=== PATIENT | female | born 1960 | race Caucasian/White ===

== ENCOUNTER 2017-04-09 16:55 | Emergency (ER) | payer MEDICAID ==
[~2017-04-09] VITALS: Ht 165.1 cm; Wt 139.3 kg
[2017-04-09 17:09] VITALS: BP_SYST 105
[2017-04-09 18:09] LABS: BASOPHILS % (AUTO) 0.5 % (0.0-2.0); EOSINOPHILS # (AUTO) 0.1 K/uL (0.0-0.4); EOSINOPHILS % (AUTO) 0.9 % (0.0-4.0); HEMATOCRIT 28.9 % (36-48); HEMOGLOBIN 9.5 g/dL (12.0-16.0); LYMPHOCYTES # (AUTO) 1.8 K/uL (1.0-5.5); LYMPHOCYTES % (AUTO) 21.4 % (20.5-51.5); MEAN CORPUSCULAR HEMOGLOBIN 29 pg (27-31); MEAN CORPUSCULAR HGB CONC 33 % (32-36); MEAN CORPUSCULAR VOLUME 88 fL (79.0-98.0); MONOCYTES # (AUTO) 0.4 K/uL (0.0-1.0); MONOCYTES % (AUTO) 4.3 % (1.7-9.3); NEUTROPHILS # (AUTO) 6.1 K/uL (1.8-7.7); NEUTROPHILS % (AUTO) 72.9 % (40.0-70.0); PLATELET COUNT (AUTO) 266 K/uL (130-430); RED BLOOD CELL COUNT(AUTO) 3.27 MIL/uL (4.2-6.2); RED CELL DISTRIBUTION WIDTH 14.6 % (9.0-15.0); WHITE BLOOD COUNT (AUTO) 8.4 K/uL (4.8-10.8)
[2017-04-09 18:24] LABS: CALCIUM 8.8 mg/dL (8.4-11.0); CREATININE 2.81 mg/dL (0.55-1.30); POTASSIUM 4.2 mmol/L (3.5-5.1)
[2017-04-09 18:27] LABS: PROTHROMBIN TIME 10.6 SECS (9.5-12.5)
[2017-04-09 18:29] LABS: ALBUMIN 2.8 g/dL (3.4-4.8); TOTAL BILIRUBIN 0.2 mg/dL (0.0-1.0)
[2017-04-09 19:01] VITALS: BP_SYST 110
== END 2017-04-09 19:01 | disposition home or self-care (01) ==
LOC: SED 16:55
DX: R60.0 Localized edema (principal); I12.9 Hypertensive chronic kidney disease with stage 1 through stage 4 chronic kidney disease, or unspecified chronic kidney disease; E11.22 Type 2 diabetes mellitus with diabetic chronic kidney disease; N18.9 Chronic kidney disease, unspecified; Z99.81 Dependence on supplemental oxygen
CPT/HCPCS: 36415; 71010; 80053; 83880; 85025; 85610-TC; 85730-TC; 93970; 99285

== ENCOUNTER 2018-05-12 08:05 | Inpatient (IN) | payer MEDICAID, OTHER ==
[~2018-05-12] VITALS: Ht 160 cm; Wt 141.5 kg
[2018-05-12 08:05] VITALS: BP_SYST 156
--- NOTE | 2018-05-12 08:05 | NUR ---
[facility]
--- NOTE | 2018-05-12 08:15 | NUR ---
Pt bib EMS from home s/p mech fall w/o syncope per report.Pt c/o R shoukder pain w/ decreased ROM.Affected area to tender to palpation. Pt guarding limb. Pt h/o COPD,HTN,DM,ESRD.
--- NOTE | 2018-05-12 08:19 | NUR ---
ER at bedside examining patient.
[2018-05-12] MEDS ORDERED: fentaNYL CITRATE/PF 100 MCG/2 ML AMP IVP ONE (09:00)
--- NOTE | 2018-05-12 09:15 | NUR ---
Pt medicated tolerated well.
--- NOTE | 2018-05-12 09:20 | NUR ---
Shoulder immobilizer placed.
[2018-05-12 09:59] LABS: BASOPHILS # (AUTO) 0.1 K/uL (0.0-0.2); BASOPHILS % (AUTO) 0.7 % (0.0-2.0); EOSINOPHILS % (AUTO) 0.6 % (0.0-4.0); HEMATOCRIT 32.1 % (36-48); HEMOGLOBIN 10.7 g/dL (12.0-16.0); LYMPHOCYTES % (AUTO) 12.8 % (20.5-51.5); MEAN CORPUSCULAR HEMOGLOBIN 35 pg (27-31); MEAN CORPUSCULAR HGB CONC 33 % (32-36); MEAN CORPUSCULAR VOLUME 104 fL (79.0-98.0); MONOCYTES # (AUTO) 0.6 K/uL (0.0-1.0); NEUTROPHILS # (AUTO) 6.3 K/uL (1.8-7.7); NEUTROPHILS % (AUTO) 77.9 % (40.0-70.0); PLATELET COUNT (AUTO) 242 K/uL (130-430); RED BLOOD CELL COUNT(AUTO) 3.09 MIL/uL (4.2-6.2); RED CELL DISTRIBUTION WIDTH 18.6 % (9.0-15.0)
[2018-05-12 10:04] LABS: CALCIUM 8.5 mg/dL (8.4-11.0); CREATININE 3.11 mg/dL (0.55-1.30); POTASSIUM 4.8 mmol/L (3.5-5.1)
[2018-05-12] MEDS ORDERED: ALLO100T PO (10:41)
[2018-05-12] MEDS ORDERED: FURO-149 PO (10:41)
[2018-05-12] MEDS ORDERED: GABA-531 PO (10:41)
[2018-05-12] MEDS ORDERED: HYDR-3610 PO (10:41)
[2018-05-12] MEDS ORDERED: SEVE800T8 PO (10:41)
[2018-05-12] MEDS ORDERED: CLOP300T2 PO (10:41)
[2018-05-12] MEDS ORDERED: LISI10TA5 PO (10:41)
[2018-05-12] MEDS ORDERED: SIMV80TA2 PO (10:41)
[2018-05-12] MEDS ORDERED: FOLI-43 PO (10:41)
[2018-05-12] MEDS ORDERED: FLO44 INH (10:41)
[2018-05-12] MEDS ORDERED: GLIP5TAB13 PO (10:41)
[2018-05-12] MEDS ORDERED: ASPI-1153 PO (10:41)
[2018-05-12] MEDS ORDERED: ALBMDI INH (10:41)
--- NOTE | 2018-05-12 10:41 | NUR ---
Medication reconciliation completed based upon med list provided by [facility].
--- NOTE | 2018-05-12 10:47 | NUR ---
Patient will be admitted to care of Dr. Murillo. Admitted to Telemetry unit. Will go to room 133A. Belongings list completed. Summary report printed. Report will be given at bedside.
[2018-05-12] MEDS ORDERED: MAGNESIUM SULFATE 50 ML IV PRN (11:00)
[2018-05-12] MEDS ORDERED: ACETAMINOPHEN 325 MG TABLET PO PRN (11:00)
[2018-05-12] MEDS ORDERED: MUPIROCIN 2% TOPICAL OINTMENT 22 GM NS PRN (11:00)
[2018-05-12] MEDS ORDERED: POTASSIUM CHLORIDE 20 MEQ TAB.PRT.SR PO PRN (11:00)
[2018-05-12] MEDS ORDERED: ONDANSETRON HCL 4 MG/2 ML VIAL IVP PRN (11:00)
[2018-05-12] MEDS ORDERED: DEXTROSE 50% JECT 50 ML DISP.SYRIN IVP PRN (11:00)
[2018-05-12] MEDS ORDERED: DOCUSATE SODIUM 100 MG CAPSULE PO PRN (11:00)
[2018-05-12] MEDS ORDERED: NACL 0.9% 1,000 ML IV SCH (11:00)
[2018-05-12] MEDS ORDERED: ZOLPIDEM TARTRATE 5 MG TABLET PO PRN (11:00)
[2018-05-12] MEDS ORDERED: ALBUTEROL SULFATE 0.083% 2.5 MG/3 ML VIAL.NEB INH PRN (11:00)
[2018-05-12] MEDS ORDERED: MORPHINE 2 MG/ML INJ. SYRINGE IVP PRN (11:00)
[2018-05-12] MEDS ORDERED: LORazepam 2 MG/ML VIAL IVP PRN (11:00)
--- NOTE | 2018-05-12 11:16 | NUR ---
ADMISSION NOTE Received patient from ER via matilde, received report from JEYSON ALEJANDRO. Patient admitted with diagnosis of RIGHT SHOULDER FRACTURE . Patient oriented to hospital routine, call light, toileting and safety-patient verbalized understanding.
--- NOTE | 2018-05-12 11:32 | NUR ---
Ortho consult called: for Dr. Glaser, regarding right shoulder fracture, ordered by Dr. Murillo, spoke with Lois.
--- NOTE | 2018-05-12 11:37 | NUR ---
Nephro consult called: for Dr. Díaz, regarding CKD, ordered by Dr. Murillo, spoke with
[2018-05-12 11:38] VITALS: BP_SYST 164
[2018-05-12] MEDS: MORPHINE 2 MG/ML INJ. SYRINGE IVP PRN ×2 (11:55→18:22)
[2018-05-12] MEDS: INSULIN ASPART 100 UNITS/ML, 10 ML VIAL (NovoLOG) SUBCUT PRN ×3 (12:01→21:28)
[2018-05-12] MEDS: SEVELAMER HCL 800 MG TABLET PO SCH ×2 (12:22→18:16)
--- NOTE | 2018-05-12 12:37 | NUR ---
[facility] rounds: Seen by Dr. Swann and talk to the patient. at bedside.
--- NOTE | 2018-05-12 12:38 | NUR ---
Initial Physical Assessment: Patient awake, alert and oriented. Stable. Sling on R arm. Able to move L upper and lower extremities. Bilateral dry skin with skin discoloration on lower extremities. Call light within reach. Safety measures in placed. Addendum: 05/12/18 at 1248 by Zara Duran RN Unable to see the buttocks due to patient in pain and difficulty moving.
[2018-05-12 12:45] VITALS: BP_SYST 128
[2018-05-12] MEDS ORDERED: HEPARIN SODIUM,PORCINE 5000 UNITS/ML VIAL MC ONE (14:00)
--- NOTE | 2018-05-12 15:01 | NUR ---
dialysis: Patient on going dialysis at bedside.
--- NOTE | 2018-05-12 15:51 | NUR ---
Dialysis done: Dialysis done with an output 2080 ml.
[2018-05-12 16:45] VITALS: BP_SYST 138
[2018-05-12 16:53] VITALS: BP_SYST 164
--- NOTE | 2018-05-12 17:32 | NUR ---
Shoulder immobilizer: applied immobilizer on the R shoulder. patient tolerated well.
[2018-05-12] MEDS: FLOVENT 44 MCG INH SCH (19:00)
--- NOTE | 2018-05-12 19:30 | NUR ---
Opening notes Pt AAOx4. VSS. No acute resp distress noted. Right shoulder immobilizer in place with cool packs. Pt able to move hands and fingers. R. Sumeet cath dressing C/D/I. R. wrist 20G clear, patent. Rasheed legs with dryness and discoloration noted. Call light placed within easy reach. Pt made comfortable with pillows for support. Pt voided using bedpan. Will continue to monitor.
--- NOTE | 2018-05-12 19:33 | NUR ---
Closing notes: Patient on bed resting. Stable. Needs attended. R arm with shoulder immobilizer. Safety measures in placed. Call light within reach. at bedside. Report given to Fatmata Rodrigues.
[2018-05-12 20:10] VITALS: BP_SYST 158
[2018-05-12] MEDS: GABAPENTIN 300 MG CAPSULE PO SCH (21:05)
[2018-05-12] MEDS: SIMVASTATIN 40 MG TABLET PO SCH (21:05)
--- NOTE | 2018-05-12 21:28 | NUR ---
Rounds/Blood sugar check Pt asleep, easily arousable. at bedside. BS checked 228, 4 units of Novolog insulin given per ss protocol. Pt states she doesn't take Levimer at home and refused med. Pt educated of risks/benefits. Call light within reach. To monitor.
--- NOTE | 2018-05-13 00:15 | NUR ---
Rounds Pt asleep, easily arousable. Pt denies pain at this time. Neuro check R. shoulder intact, pt able to wiggle/move fingers, warm to touch. Call light within reach. To monitor.
[2018-05-13 00:26] VITALS: BP_SYST 149
[2018-05-13] MEDS: MORPHINE 2 MG/ML INJ. SYRINGE IVP PRN ×4 (02:13→15:41)
--- NOTE | 2018-05-13 02:13 | NUR ---
Pain mgmt Pt awake, voided in the bedpan. Pt c/o 8/10 aching pain on R. shoulder. Medicated with Morphine 2mg IVP as needed. Ice packs on. Call light within reach. Rasheed SCDs on. Will continue to monitor.
--- NOTE | 2018-05-13 04:30 | NUR ---
Rounds Pt awake. Assisted with bedpan per BEHAVIORAL HEALTH CARE MANAGER. Pt voided. Pericare provided. Call light within reach. To monitor.
[2018-05-13 06:36] LABS: BASOPHILS % (AUTO) 0.2 % (0.0-2.0); EOSINOPHILS # (AUTO) 0.1 K/uL (0.0-0.4); EOSINOPHILS % (AUTO) 0.7 % (0.0-4.0); HEMATOCRIT 30.4 % (36-48); HEMOGLOBIN 10.2 g/dL (12.0-16.0); LYMPHOCYTES # (AUTO) 1.8 K/uL (1.0-5.5); LYMPHOCYTES % (AUTO) 21.4 % (20.5-51.5); MEAN CORPUSCULAR HEMOGLOBIN 35 pg (27-31); MEAN CORPUSCULAR HGB CONC 33 % (32-36); MEAN CORPUSCULAR VOLUME 104 fL (79.0-98.0); MONOCYTES # (AUTO) 0.8 K/uL (0.0-1.0); MONOCYTES % (AUTO) 9.6 % (1.7-9.3); NEUTROPHILS # (AUTO) 5.7 K/uL (1.8-7.7); NEUTROPHILS % (AUTO) 68.1 % (40.0-70.0); PLATELET COUNT (AUTO) 244 K/uL (130-430); RED BLOOD CELL COUNT(AUTO) 2.93 MIL/uL (4.2-6.2); RED CELL DISTRIBUTION WIDTH 18.7 % (9.0-15.0); WHITE BLOOD COUNT (AUTO) 8.4 K/uL (4.8-10.8)
[2018-05-13 06:45] LABS: CALCIUM 8.8 mg/dL (8.4-11.0); CREATININE 2.58 mg/dL (0.55-1.30); POTASSIUM 4.8 mmol/L (3.5-5.1)
--- NOTE | 2018-05-13 06:50 | NUR ---
Closing notes/Pain mgmt Pt asleep easily arousable. No acute distress noted. Pt c/o 03/13 R. shoulder pain, medicated with Morphine 2mg IVP as needed. R. shoulder sling on. Neuro check intact, pt able to move fingers. MRSA nares collected and sent to lab. Pt's home med Symbicort inhaler sent to lab. Rasheed SCDs in place. All needs met. Call light within reach. To endorse to am nurse.
[2018-05-13] MEDS: INSULIN ASPART 100 UNITS/ML, 10 ML VIAL (NovoLOG) SUBCUT PRN ×4 (06:55→20:39)
[2018-05-13] MEDS: FLOVENT 44 MCG INH SCH (07:00)
--- NOTE | 2018-05-13 07:45 | NUR ---
Opening note patient resting in bed, alert and awake x4, received pain medication prior to shift change, assessment complete, hygiene care performed, right shoulder immobilizer in place, neurovascular assessment complete, educated the patient on plan of care and call light system and to call for any assistance, patient verbalized understanding, bed in lowest position, bed close to nursing station, two side rails up, bed alarm on, call light within reach, fall and aspiration precautions in place.
[2018-05-13 08:07] VITALS: BP_SYST 159
[2018-05-13] MEDS: SEVELAMER HCL 800 MG TABLET PO SCH ×3 (08:15→17:51)
[2018-05-13] MEDS: GABAPENTIN 300 MG CAPSULE PO SCH ×2 (08:16→20:31)
[2018-05-13] MEDS: LISINOPRIL 10 MG TABLET (PRINIVIL) PO SCH (08:16)
[2018-05-13] MEDS: ALLOPURINOL 100 MG TABLET (ZYLOPRIM) PO SCH (08:17)
--- NOTE | 2018-05-13 08:20 | NUR ---
Medications educated patient on medications uses and potential side effects, tolerated well, patient refused lasix PO, educated patient on benefits of medication, patient still refused, bed in lowest position, bed close to nursing station, bed alarm on, two side rails up, call light within reach, fall and aspiration precautions in place.
[2018-05-13] MEDS: FUROSEMIDE 40 MG TABLET PO SCH (09:00)
--- NOTE | 2018-05-13 10:10 | NUR ---
Nutrition Update Amando Scale 16 noted. Pt admitted for R shoulder fracture. Diet: [facility] BMI: 56.7 kg/m2 RD to follow per nutrition care standards.
--- NOTE | 2018-05-13 10:24 | NUR ---
RN Rounds patient resting in bed, repositioned patient, awaiting physical therapy evaluation, patient asking about pain medication informed her her that pain medication is not due yet, no other complaints at this time, bed in lowest position, three side rails up, bed alarm on, bed close to nursing station, call light within reach, fall and aspiration precautions in place.
--- NOTE | 2018-05-13 11:20 | NUR ---
Pain medication/ physical therapy patient up with physical therapy, provided with bedside commode per patient request, patient complaining of pain to right shoulder, educated on pain medication and pain management, verbalized understanding, IV line patent and infusing well, patient to continue with physical therapy, continuing to monitor, bed linen changed and hospital gown provided, no other needs at this time.
--- NOTE | 2018-05-13 12:16 | NUR ---
RN rounds / blood glucose check patient resting in bed after physical therapy, family at bedside, case management social worker present, checked blood sugar, insulin coverage provided per MD orders, no other needs at this time, bed in lowest position, bed alarm on, two side rails up, call light within reach, fall and aspiration precautions in place.
[2018-05-13 12:18] VITALS: BP_SYST 158
--- NOTE | 2018-05-13 14:04 | NUR ---
Case mgt: Met w/pt, , dad, dtr at bedside-pt lives in tri-level home-uses walker w/seat but handbrakes are broken. Has home 02, raised toilets at home. takes pt to HD at [facility]. Pt requesting hospital bed for home as she had one when she broke her other shoulder before. I discussed with Dr. Murillo-he indicates pt would benefit from SNF instead of dc home as she's had multiple falls. I will give pt/family SNF list.The physical therapist recommended wide 4 pt quad cane today after he worked with pt earlier today. Pt was up to [facility] earlier. MIAN RN
--- NOTE | 2018-05-13 14:45 | NUR ---
RN Rounds patient resting in bed with eyes closed, breathing unlabored symmetrical, no signs of distress, continuing to monitor, bed in lowest position, bed alarm on, bed close to nursing station, call light within reach, fall and aspiration precautions in place.
--- NOTE | 2018-05-13 15:52 | NUR ---
Pain medication patient requesting pain medication, educated on pain management and pain medication uses and potential side effects, IV patent and infusing, patient tolerated well, family at bedside, no other needs at this time, bed in lowest position, bed alarm on, bed close to nursing station, two side rails up, call light within reach, fall and aspiration precautions in place.
[2018-05-13 16:35] VITALS: BP_SYST 114; BP_SYST 164
--- NOTE | 2018-05-13 16:40 | NUR ---
RN rounds patient resting in bed with eyes closed, neurovascular assessment completed, no other needs at this time, bed in lowest position, bed alarm on, bed close to nursing station, bed alarm on, call light within reach, fall and aspiration precautions in place.
[2018-05-13 17:13] VITALS: BP_SYST 133
--- NOTE | 2018-05-13 17:45 | NUR ---
Dietitian Recommendations * Recommend CCHO, renal diet per LP, RD Please refer to Nutrition Assessment for details.
--- NOTE | 2018-05-13 18:06 | NUR ---
Medications patient resting in bed, educated patient on medication uses and side effects, checked blood glucose, insulin coverage provided per MD orders, bed in lowest position, two side rails up, bed close to nursing station, call light within reach, fall and aspiration precautions in place.
--- NOTE | 2018-05-13 18:44 | NUR ---
Closing note patient resting in bed, stable condition, denies pain, all needs met, will endorse report to NOC shift nurse, bed in lowest position, bed alarm on, bed close to nursing station, two side rails up, call light within reach, fall and aspiration precautions in place.
[2018-05-13 20:00] VITALS: BP_SYST 151
--- NOTE | 2018-05-13 20:00 | NUR ---
Initial Notes Received patient resting in bed, awake, oriented. Patient denies any acute distress or pain at this time. Vital signs stable. Breathing is even and unlabored. IV site patent/clean/dry. Right arm in immobilizer, neurovascular check ana, patient tolerating well. Needs addressed. Educated patient regarding use of call light for assistance and fall precautions, patient verbalized understanding. Call light in hand, will continue to monitor.
[2018-05-13] MEDS: SIMVASTATIN 40 MG TABLET PO SCH (20:31)
--- NOTE | 2018-05-13 22:00 | NUR ---
Nursing Notes Patient resting in bed with eyes closed, easily aroused. Patient denies any acute distress at this time. Breathing is even and unlabored. Assisted DIRECTOR OF RADIOLOGY with incontinence and hygiene care, linen change provided. Arm immobilizer in use. Fall precautions in place, will continue to monitor.
[2018-05-14] VITALS: BP_SYST 154
--- NOTE | 2018-05-14 | NUR ---
Nursing Notes Patient resting in bed with eyes closed, easily aroused upon nurse entering room. Patient denies any acute distress or pain at this time. Breathing is even and unlabored. Needs addressed. Will continue to monitor.
--- NOTE | 2018-05-14 02:00 | NUR ---
Nursing Notes Patient resting in bed, awake. Patient denies any acute distress at this time. Denies any needs. Call light in hand, fall precautions in place.
[2018-05-14] MEDS: MORPHINE 2 MG/ML INJ. SYRINGE IVP PRN (03:13)
--- NOTE | 2018-05-14 04:17 | NUR ---
Nursing Notes Patient resting in bed with eyes closed. No acute distress noted. Breathing is even and unlabored. Immobilizer in place. Will continue to monitor.
[2018-05-14] MEDS: INSULIN ASPART 100 UNITS/ML, 10 ML VIAL (NovoLOG) SUBCUT PRN ×4 (06:19→21:03)
--- NOTE | 2018-05-14 06:52 | NUR ---
Closing Notes Patient resting in bed with eyes closed, easily aroused. Patient denies any acute distress or pain at this time. Breathing is even and unlabored. IV site patent/clean/dry, no S/S infection/infiltration noted. Arm immobilizer in use, patient tolerating well. Needs addressed throughout shift. Call light in hand, fall precautions in place. Will continue to monitor for changes and safety, and endorse all patient care/needs to oncoming nurse.
[2018-05-14] MEDS: FLOVENT 44 MCG INH SCH ×2 (07:00→19:00)
[2018-05-14 07:37] LABS: BASOPHILS # (AUTO) 0.1 K/uL (0.0-0.2); BASOPHILS % (AUTO) 1.1 % (0.0-2.0); EOSINOPHILS % (AUTO) 0.4 % (0.0-4.0); HEMOGLOBIN 10.4 g/dL (12.0-16.0); LYMPHOCYTES # (AUTO) 1.5 K/uL (1.0-5.5); LYMPHOCYTES % (AUTO) 13.7 % (20.5-51.5); MEAN CORPUSCULAR HEMOGLOBIN 35 pg (27-31); MEAN CORPUSCULAR HGB CONC 33 % (32-36); MEAN CORPUSCULAR VOLUME 104 fL (79.0-98.0); MONOCYTES # (AUTO) 1.5 K/uL (0.0-1.0); NEUTROPHILS % (AUTO) 71.7 % (40.0-70.0); PLATELET COUNT (AUTO) 255 K/uL (130-430); RED BLOOD CELL COUNT(AUTO) 2.97 MIL/uL (4.2-6.2); RED CELL DISTRIBUTION WIDTH 18.6 % (9.0-15.0); WHITE BLOOD COUNT (AUTO) 11.1 K/uL (4.8-10.8)
[2018-05-14 07:40] LABS: CALCIUM 8.9 mg/dL (8.4-11.0); CREATININE 2.8 mg/dL (0.55-1.30); POTASSIUM 5.1 mmol/L (3.5-5.1)
--- NOTE | 2018-05-14 07:45 | NUR ---
Opening note patient resting in bed, alert and oriented x 4, assessment completed, neurovascular assessment completed, patient denies pain, educated patient on plan of care and call light system, bed in lowest position, three side rails up, bed close to nursing station, bed alarm on, call light within reach, fall and aspiration precautions in place.
[2018-05-14 08:03] VITALS: BP_SYST 124
[2018-05-14] MEDS: FUROSEMIDE 40 MG TABLET PO SCH (08:38)
[2018-05-14] MEDS: SEVELAMER HCL 800 MG TABLET PO SCH ×3 (08:39→17:06)
[2018-05-14] MEDS: GABAPENTIN 300 MG CAPSULE PO SCH ×2 (08:39→20:47)
[2018-05-14] MEDS: LISINOPRIL 10 MG TABLET (PRINIVIL) PO SCH (08:40)
[2018-05-14] MEDS: ALLOPURINOL 100 MG TABLET (ZYLOPRIM) PO SCH (08:40)
[2018-05-14] MEDS ORDERED: HEPARIN SODIUM,PORCINE 5000 UNITS/ML VIAL MC ONE (08:45)
--- NOTE | 2018-05-14 08:46 | NUR ---
Hemodialysis at this time, patient tolerating well.
--- NOTE | 2018-05-14 08:50 | NUR ---
Medications educated patient on medication uses and potential side effects, utilized medication side effect sheet, patient tolerated well, no other needs at this time, bed in lowest position, three side rails up, bed close to nursing station, bed alarm on, call light within reach, fall and aspiration precautions in place.
[2018-05-14 09:43] LABS: MONOCYTES % (AUTO) 13.1 % (1.7-9.3)
--- NOTE | 2018-05-14 10:09 | NUR ---
ATTEMPTED TO SEE PATIENT FOR THERAPY BUT WAS GETTING PREPARED FOR HEMO DIALYSIS TREATMENT.
--- NOTE | 2018-05-14 11:09 | NUR ---
Discharge Planning: DCP faxed pt referral to [facility] (f [phone] p [phone]); DCP to follow up. Addendum: 05/14/18 at 1340 by Ekta Juárez DP DCP spoke to Liliana at [facility] (f [phone] p [phone]); pt accepted room 24B.
--- NOTE | 2018-05-14 11:43 | NUR ---
DC PLANNING Spoke w pt @ bedside regarding dc planning for SNF. States to call & discuss w on which SNF. Called & spoke w Abel, ph [phone], states he has not looked @ pamphlets thoroughly yet that will look @ them later today & discuss w pt. Agreeable w SNF, informed anticipate for tomorrow if stable. States to go ahead & send to [facility] for now that will let us know final preference later today. States if gets here after 430pm will call & leave a [facility] for dc materials planner w preferred SNF, gave direct ext. Updated eryn Dash materials planner. Spoke w Dr Murillo in [facility] station & states plan for SNF for tomorrow. Addendum: 05/14/18 at 1606 by Arlen Chong RN Spoke w pt & Abel @ bedside. states looked at pamphlets & prefers [facility]. Informed pt & that accepted @ [facility] & anticipate dc tomorrow. Updated eryn Dash materials planner.
--- NOTE | 2018-05-14 11:43 | NUR ---
RN rounds patient resting in bed, blood glucose check completed, provided insulin coverage per MD orders, patient tolerated well, no other needs at this time, bed in lowest position, bed alarm on, two side rails up, bed close to nursing station, call light within reach, fall and aspiration precautions in place.
[2018-05-14 12:54] VITALS: BP_SYST 141
[2018-05-14] MEDS: HYDROcodone/ACETAMIN 5-325 MG TAB (NORCO/ VICODIN) PO PRN ×2 (13:01→18:21)
--- NOTE | 2018-05-14 13:10 | NUR ---
Pain medication patient resting in bed, requesting medication for pain, educated patient on medication uses and potential side effects, patient tolerated well, no other needs at this time, will continue to monitor, bed in lowest position, two side rails up, bed close to nursing station, call light within reach, bed alarm on, fall and aspiration precautions in place.
--- NOTE | 2018-05-14 16:16 | NUR ---
RN rounds patient resting in bed, neurovascular assessment completed, patient denies any pain, will continue to monitor, bed in lowest position, bed alarm on, bed close to nursing station, two side rails up, call light within reach, fall and aspiration precautions in place.
[2018-05-14 16:37] VITALS: BP_SYST 153
--- NOTE | 2018-05-14 17:39 | NUR ---
RN rounds/blood glucose check patient resting in bed, blood glucose check completed, administered insulin per MD order, patient tolerated well, patient denies pain, will continue to monitor, bed in lowest position, bed alarm on, bed close to nursing station, two side rails up, call light within reach, fall and aspiration precautions in place.
--- NOTE | 2018-05-14 18:23 | NUR ---
Pain medication patient resting in bed, requesting medication for pain, educated patient on medication uses and potential side effects, repositioned patient and provided hygiene care, patient tolerated well, no other needs at this time, will continue to monitor, bed in lowest position, two side rails up, bed close to nursing station, call light within reach, bed alarm on, fall and aspiration precautions in place.
--- NOTE | 2018-05-14 18:33 | NUR ---
Closing note patient resting in bed, stable condition, all needs met, patient denies any pain, no signs of distress, will endorse report to NOC shift nurse, bed in lowest position, bed close to nursing station, call light within reach, bed alarm on, two side rails up, fall and aspiration precautions in place.
--- NOTE | 2018-05-14 19:30 | NUR ---
OPENING NOTE Late entry due to patient care. Received patient AOX4, she is resting supine and on 3L NC. Sumeet cath on Rt chest is dry/intact. SL IV to R wrist is patent and dressing is dry/intact. New AV shunt on left arm does not have palpable thrill. Patient is wearing upper & lower dentures. Safety measures in place. SCD's in place. Reviewed plan of care.
[2018-05-14 20:00] VITALS: BP_SYST 125
[2018-05-14] MEDS: SIMVASTATIN 40 MG TABLET PO SCH (20:47)
--- NOTE | 2018-05-14 21:20 | NUR ---
ROUNDS Patient was resting with eyes closed. Due medications were administered. Accucheck level was 308 and 8 units of Novalog were administerd per sliding scale. She was repositioned for comfort. Ice packs were place to top of right shoulder.
--- NOTE | 2018-05-14 23:35 | NUR ---
ROUNDS Patient is resting, non-labored breathing, she reports pain level is tolerable.
[2018-05-15] VITALS: BP_SYST 145
--- NOTE | 2018-05-15 01:45 | NUR ---
ROUNDS Patient was sleeping, non-labored breathing with symmetrical rise and fall of chest. Safety measures in place.
--- NOTE | 2018-05-15 02:37 | NUR ---
ROUNDS Patient reports Rt shoulder and neck pain as 6/10. Ice packs provided and will administer PRN pain medication. She requested a snack and was positioned for comfort. All needs met and safety measures in place.
[2018-05-15] MEDS: HYDROcodone/ACETAMIN 5-325 MG TAB (NORCO/ VICODIN) PO PRN ×3 (02:57→10:35)
--- NOTE | 2018-05-15 04:20 | NUR ---
ROUNDS Patient was provided bed bath, pericare, and repositioned for comfort. She was provided ice packs to neck and right shoulder. She also requested ice chips and needs were met. Bed is low and call light w/in reach.
--- NOTE | 2018-05-15 05:45 | NUR ---
operating theatre technician at bedside for blood draw.
[2018-05-15 06:09] LABS: HEMATOCRIT 29.3 % (36-48); HEMOGLOBIN 9.4 g/dL (12.0-16.0); MEAN CORPUSCULAR HEMOGLOBIN 33 pg (27-31); MEAN CORPUSCULAR HGB CONC 32 % (32-36); MEAN CORPUSCULAR VOLUME 104 fL (79.0-98.0); PLATELET COUNT (AUTO) 246 K/uL (130-430); RED BLOOD CELL COUNT(AUTO) 2.81 MIL/uL (4.2-6.2); RED CELL DISTRIBUTION WIDTH 18.7 % (9.0-15.0); WHITE BLOOD COUNT (AUTO) 10.7 K/uL (4.8-10.8)
[2018-05-15 06:27] LABS: CALCIUM 8.5 mg/dL (8.4-11.0); CREATININE 3.02 mg/dL (0.55-1.30); POTASSIUM 4.4 mmol/L (3.5-5.1)
[2018-05-15] MEDS: INSULIN ASPART 100 UNITS/ML, 10 ML VIAL (NovoLOG) SUBCUT PRN ×2 (06:45→11:45)
--- NOTE | 2018-05-15 06:50 | NUR ---
CLOSING NOTE Patient was given scheduled medications and fingerstick glucose reading was 202. She was administered 4 units Novalog as ordered. She reported right shoulder and neck pain of 5/10 and was administered pain medication as ordered. Needs met, call light w/in reach. Safety measures in place.
--- NOTE | 2018-05-15 06:50 | NUR ---
CLOSING NOTE Patient needs met and she is resting supine, no sign of distress noted. Her morning medication was administered. The fingerstick accucheck level was 202 and she was given 4 units of Novalog according to scale. She reported right shoulder and neck pain of 5/10 and she was administered pain medication as ordered. Safety measures are in place and call light w/in reach.
[2018-05-15 08:25] VITALS: BP_SYST 123
--- NOTE | 2018-05-15 08:25 | NUR ---
INITIAL ROUNDS Received pt AAOx4, very sleepy-stated she did sleep well last night. No s/s resp distress, no c/o pain or discomfort. Right shoulder in immobilizer brace. Neurovascular check intact. Plan of care for the day reviewed with pt-pt verbalized her understanding. Noted Sumeet cath to right upper chest. Noted AV shunt to left arm. Pain management, skin and safety discussed-teach back done. Xray and physical therapists here to assist pt to sitting position for right shoulder Xray. Call light within reach.
[2018-05-15 10:01] LABS: BAND % (MANUAL) 2 % (0-6); BASOPHILS % (MANUAL) 0 % (0-2); EOSINOPHILS % (MANUAL) 2 % (0-7); LYMPHOCYTES % (MANUAL) 10 % (20-46); MONOCYTES % (MANUAL) 15 % (0-11)
[2018-05-15] MEDS: GABAPENTIN 300 MG CAPSULE PO SCH (10:30)
[2018-05-15] MEDS: SEVELAMER HCL 800 MG TABLET PO SCH ×2 (10:30→13:00)
[2018-05-15] MEDS: ALLOPURINOL 100 MG TABLET (ZYLOPRIM) PO SCH (10:31)
[2018-05-15] MEDS: LISINOPRIL 10 MG TABLET (PRINIVIL) PO SCH (10:31)
[2018-05-15] MEDS: FUROSEMIDE 40 MG TABLET PO SCH (10:31)
--- NOTE | 2018-05-15 10:35 | NUR ---
ROUNDS/MEDS Pt resting quietly in bed with no s/s resp distress, c/o pain to her right shoulder-pt given [place] as ordered. Pt given due AM medication-pt was having Xray of right shoulder done earlier-then worked with physical therapy. Pt made comfortable in bed. Call light within reach.
--- NOTE | 2018-05-15 10:52 | NUR ---
Discharge Planning: DCP arranged transportation with [employer] ) to [facility] (f [phone] p [phone]) pt accepted to room 24B
--- NOTE | 2018-05-15 10:54 | NUR ---
DCP placed pt packet at nurse station. Nurse to nurse [phone]. Addendum: 05/15/18 at 1209 by Ekta Juárez DP Transportation picker tender helper time 1:00pm.
[2018-05-15 12:23] VITALS: BP_SYST 137
[2018-05-15 12:25] VITALS: BP_SYST 137
--- NOTE | 2018-05-15 12:40 | NUR ---
ATTEMPTED TO CALL REPORT Called [facility] and spoke with the support services specialist who stated they will call me back when the nurse receiving the patient comes back from lunch.
--- NOTE | 2018-05-15 13:00 | NUR ---
ROUNDS Pt given due medication, pt ready to be discharged to facility. No s/s resp distress, no c/o pain or discomfort. Needs met, call light within reach.
--- NOTE | 2018-05-15 14:10 | NUR ---
REPORT CALLED Report called to Maria C ALEJANDRO at [facility].
--- NOTE | 2018-05-15 14:36 | NUR ---
PT TRANSFERRED Transfer packet with Transfer Orders and Medication Reconciliation form given to EMT with report. Exitcare on Fall Prevention explained and provided. [facility] ID band removed, replaced with ID band with pt's name and . IV catheter removed, intact and dressing applied, no active bleeding. Right Sumeet cath remains in place. Right shoulder immobilizer sent on patient. All belongings sent with patient. Patient left floor via gurney escorted by EMT in no distress.
== END 2018-05-15 14:36 | DRG 562 ==
LOC: SED 08:05 → STU 10:42
PROVIDERS: ADMIT General Practice; ATTEND General Practice
PROC: 5A1D70Z Performance of Urinary Filtration, Intermittent, Less than 6 Hours Per Day (ICD-10-PCS; principal; 2018-05-12)
PROC: 5A1D70Z Performance of Urinary Filtration, Intermittent, Less than 6 Hours Per Day (ICD-10-PCS; 2018-05-14)
DX: S42.211A Unspecified displaced fracture of surgical neck of right humerus, initial encounter for closed fracture (principal); N17.0 Acute kidney failure with tubular necrosis; N18.6 End stage renal disease; E87.1 Hypo-osmolality and hyponatremia; I13.2 Hypertensive heart and chronic kidney disease with heart failure and with stage 5 chronic kidney disease, or end stage renal disease; Z68.43 Body mass index [BMI] 50.0-59.9, adult; W01.0XXA Fall on same level from slipping, tripping and stumbling without subsequent striking against object, initial encounter; J44.9 Chronic obstructive pulmonary disease, unspecified; E11.21 Type 2 diabetes mellitus with diabetic nephropathy; N18.9 Chronic kidney disease, unspecified; E66.01 Morbid (severe) obesity due to excess calories; E11.65 Type 2 diabetes mellitus with hyperglycemia; M10.9 Gout, unspecified; E78.5 Hyperlipidemia, unspecified; E11.40 Type 2 diabetes mellitus with diabetic neuropathy, unspecified; G89.29 Other chronic pain; M47.896 Other spondylosis, lumbar region; I50.9 Heart failure, unspecified; E21.1 Secondary hyperparathyroidism, not elsewhere classified; D63.1 Anemia in chronic kidney disease; Z79.899 Other long term (current) drug therapy; Z79.82 Long term (current) use of aspirin; Z86.73 Personal history of transient ischemic attack (TIA), and cerebral infarction without residual deficits; Z99.81 Dependence on supplemental oxygen; Z91.81 History of falling; Z87.891 Personal history of nicotine dependence; Z99.2 Dependence on renal dialysis; Y93.89 Activity, other specified; Y92.89 Other specified places as the place of occurrence of the external cause; Y99.8 Other external cause status
CPT/HCPCS: 36415; 73030; 73060-TC; 80048; 82962; 83036; 83735-TC; 85007; 85025; 85027; 87081; 90935; 90937; 96374; 97110-GP; 97530-GP; 99285; J1644; J2270; J3010; J7030